=== PATIENT | female | born 1955 | race Caucasian/White ===

== ENCOUNTER 2023-07-05 06:51 | Day surgery (SDC) | payer OTHER, BC ==
[2023-07-03 11:56] LABS: Absolute Basophils 0.1 K/uL (0-0.5); Absolute Eosinophils 0.1 K/uL (0-0.5); Absolute Lymphocytes (CBC) 1.4 K/uL (0.7-4.9); Absolute Monocytes 0.6 K/uL (0.1-1.3); Absolute Neutrophil 2.7 K/uL (1.8-8.0); Eosinophils % 1.7 % (0-4.4); Hematocrit 41.4 % (36.0-45.0); Hemoglobin 13.9 g/dL (12.0-15.0); Lymphocytes % 28.9 % (15.3-44.8); MCH 31.4 pg (27.0-35.0); MCHC 33.6 g/dL (32.0-36.0); MCV 93.4 fL (80-100); MPV 8.6 fL (7.6-11.3); Monocytes % 12.3 % (3.3-12.3); Neutrophils % 55.1 % (41.7-73.7); Platelets 237 thou/uL (152-406); RBC Red Blood Cell Count 4.44 M/uL (3.86-4.86); Red Cell Distribution Width 13.2 % (12.1-15.2)
[2023-07-03 12:11] LABS: Anion Gap 6.2 mEq/L (5.0-15.0); Potassium 4.2 mEq/L (3.5-5.1)
--- NOTE | 2023-07-04 13:28 | EKG ---
Test Date: 2023-07-03 Test Time: 10:31:36 Director Of Residential Services: SHIREEN MEASUREMENT RESULTS: Intervals: Rate: 52 MS: 132 QRSD: 72 QT: 414 QTc: 385 [place]: P: 73 MS: 132 QRS: 84 T: 84 INTERPRETIVE STATEMENTS: Sinus bradycardia Otherwise normal ECG No previous ECG available for comparison Electronically Signed On 07-04-23 13:27:08 CDT by Alexi Howard
[2023-07-05] MEDS ORDERED: Ringers Lactate 1,000 ML IV ONE (07:18)
[2023-07-05] MEDS ORDERED: propofoL 200 MG/20 ML VIAL IV ONE ×2 (09:10)
[2023-07-05] MEDS ORDERED: LIDOCAINE 1% MPF 30 ML VIAL ONE (09:10)
[2023-07-06 14:35] VITALS: BP 113/68; TEMP 97.3; O2SAT 100
== END 2023-07-05 09:40 | disposition home or self-care (01) ==
LOC: OR 06:51 → MERGE 08:45 → OR 09:40
PROVIDERS: ATTEND Surgery
PROC: 0DDQ8ZX Extraction of Anus, Via Natural or Artificial Opening Endoscopic, Diagnostic (ICD-10-PCS; principal; 2023-07-05 08:00)
DX: Z12.11 Encounter for screening for malignant neoplasm of colon (principal); K64.8 Other hemorrhoids
CPT/HCPCS: 93005; 85025; 80048; 36415; 88305; 45380; J2704 ×2; J2001; J7120; 88304